=== PATIENT | male | born 1950 | race Caucasian/White ===

== ENCOUNTER 2017-08-01 10:39 | Emergency (ER) | payer BC ==
--- NOTE | 2017-08-01 10:53 | EDM.PDOC ---
ED HPI GENERAL MEDICAL PROBLEM - General Chief Complaint: Back Pain or Injury Stated Complaint: PAIN IN HIPS AND BACK Time Seen by Provider: 08/01/17 10:41 Source of Information: Reports: Patient History Limitations: Reports: No Limitations - History of Present Illness INITIAL COMMENTS - FREE TEXT/NARRATIVE: HISTORY AND PHYSICAL: History of present illness: Patient is a 66-year-old male who presents to the emergency room with complaints of low back pain, left hip pain and difficulty ambulating after falling. Patient reports he was climbing down off of a tractor when he fell backwards hitting his head and landing on the left hip. He denies any loss of consciousness, change in vision or nausea/vomiting. Reports that his had to come to the [place] and pick him up as he has pain and difficulty ambulating. He denies any numbness or tingling to his distal extremities. Denies any urinary or fecal incontinence. Takes a 81 mg aspirin daily. Review of systems: As per history of present illness and below otherwise all systems reviewed and negative. Past medical history: As per history of present illness and as reviewed below otherwise noncontributory. Surgical history: As per history of present illness and as reviewed below otherwise noncontributory. Social history: No reported history of drug or alcohol abuse. Family history: As per history of present illness and as reviewed below otherwise noncontributory. Physical exam: General: Well-developed and well-nourished 66-year-old male. Alert and oriented. Nontoxic appearing and in no acute distress. HEENT: Atraumatic, normocephalic, pupils equal and reactive bilaterally, negative for conjunctival pallor or scleral icterus, mucous membranes moist, throat clear, neck supple, nontender, trachea midline. No drooling or trismus noted. No meningeal signs Lungs: Clear to auscultation, breath sounds equal bilaterally, chest nontender. Heart: S1S2, regular rate and rhythm without overt murmur Abdomen: Soft, nondistended, nontender. Negative for masses or hepatosplenomegaly. Negative for costovertebral tenderness. Pelvis: Stable nontender. Genitourinary: Deferred. Rectal: Deferred. Skin: Intact, warm, dry. No lesions or rashes noted. Extremities: Moves all extremities per self without difficulty or deficits. Full ROM. No pain with palpation of the extremities. negative for cords or calf pain. Neurovascular unremarkable. Denies any numbness or tingling to the upper or lower extremities bilaterally. Strong pedal pulses. Strong radial pulses. C-spine/Back: No pinpoint vertebral tenderness upon palpation. No crepitus, step -offs or obvious deformities. Neuro: Awake, alert, oriented. Cranial nerves II through XII unremarkable. Cerebellum unremarkable. Motor and sensory unremarkable throughout. Exam nonfocal. Notes: Head CT is negative shoulder x-ray shows no abnormality, dislocation or fracture. There is noted an old healed left midclavicular fracture. Chest x-ray is negative. Lumbar spine/pelvis/left hip shows degenerative changes without any acute osseous findings. This information was shared with the patient. Diagnostics: CT head, chest x-ray, left shoulder, lumbar spine, left hip/pelvis Therapeutics: Toradol, Norflex, sling Impression: Low back pain Left hip injury Left Shoulder Injury Plan: 1. Rest, ice, elevate the affected extremities. After 24-48 hours, you may apply gentle heat to painful areas. 2. Tylenol as needed for pain. Please take the Flexeril (muscle relaxor) and diclofenac (anti-inflammatory) as prescribed. Do not take any additional NSAID, such as Aleve or Ibuprfoen, while taking the diclofenac. Flexeril (muscle relaxor) may cause some drowsiness so do not take it will driving her needing to be functioning outside of the house. 3. Follow-up with the orthopedic doctor in the next 1-2 days. Return to the ED as needed and as discussed. Definitive disposition and diagnosis as appropriate pending reevaluation and review of above. Onset: Today Duration: Hour(s): left hip Pain Score (Numeric/FACES): 9 - Related Data Allergies Allergy/AdvReac Type Severity Reaction Status Date / Time No Known Allergies Allergy Verified 08/01/17 10:43 Home Meds: Home Meds . [No Known Home Meds] 08/01/17 [History] Past Medical History HEENT History: Reports: Impaired Vision Cardiovascular History: Reports: Afib Respiratory History: Reports: None Gastrointestinal History: Reports: None Genitourinary History: Reports: Other (See Below) Other Genitourinary History: Leaking vein in kidney Musculoskeletal History: Reports: None Neurological History: Reports: None Psychiatric History: Reports: None Endocrine/Metabolic History: Reports: None Hematologic History: Reports: None Immunologic History: Reports: None Oncologic (Cancer) History: Reports: None Dermatologic History: Reports: None - Past Surgical History Head Surgeries/Procedures: Reports: None HEENT Surgical History: Reports: None Cardiovascular Surgical History: Reports: None Respiratory Surgical History: Reports: None GI Surgical History: Reports: None Male Surgical History: Reports: None Endocrine Surgical History: Reports: None Neurological Surgical History: Reports: None Musculoskeletal Surgical History: Reports: None Oncologic Surgical History: Reports: None Dermatological Surgical History: Reports: None Social & Family History - Family History Family Medical History: Noncontributory - Tobacco Use Smoking Status *Q: Never Smoker Second Hand Smoke Exposure: No - Caffeine Use Caffeine Use: Reports: None - Recreational Drug Use Recreational Drug Use: No ED ROS GENERAL - Review of Systems Review Of Systems: ROS reveals no pertinent complaints other than HPI. ED EXAM,LOWER BACK PAIN/INJURY - Physical Exam Exam: See Below (See dictation) Course - Vital Signs Last Recorded V/S: Last Vital Signs Temp 97.7 F 08/01/17 10:43 Pulse 73 08/01/17 10:43 Resp 18 08/01/17 10:43 BP 137/72 08/01/17 10:43 Pulse Ox 96 08/01/17 10:43 Departure - Departure Time of Disposition: 12:15 Disposition: Home, Self-Care 01 Clinical Impression: Shoulder injury Qualifiers: Encounter type: initial encounter Laterality: left Qualified Code(s): S49.92XA - Unspecified injury of left shoulder and upper arm, initial encounter Low back pain Qualifiers: Chronicity: acute Back pain laterality: left Sciatica presence: without sciatica Qualified Code(s): M54.5 - Low back pain Injury of left hip Qualifiers: Encounter type: initial encounter Qualified Code(s): S79.912A - Unspecified injury of left hip, initial encounter - Discharge Information Instructions: Back Pain, Adult, [id number] Referrals: Yefri Singh MD [Primary Care Provider] - Forms: ED Department Discharge Additional Instructions: The following information is given to patients seen in the emergency department who are being discharged to home. This information is to outline your options for follow-up care. We provide all patients seen in our emergency department with a follow-up referral. The need for follow-up, as well as the timing and circumstances, are variable depending upon the specifics of your emergency department visit. If you don't have a primary care physician on staff, we will provide you with a referral. We always advise you to contact your personal physician following an emergency department visit to inform them of the circumstance of the visit and for follow-up with them and/or the need for any referrals to a consulting specialist. The emergency department will also refer you to a specialist when appropriate. This referral assures that you have the opportunity for follow-up care with a specialist. All of these measure are taken in an effort to provide you with optimal care, which includes your follow-up. Under all circumstances we always encourage you to contact your private physician who remains a resource for coordinating your care. When calling for follow-up care, please make the office aware that this follow-up is from your recent emergency room visit. If for any reason you are refused follow-up, please contact the [facility] Emergency Department at and asked to speak to the emergency department charge nurse. [facility] [place] [address] [facility] Special[facility] - [facility] Professional Building [address] [place] [address], [address] [place] [address] 1. Rest, ice, elevate the affected extremities. After 24-48 hours, you may apply gentle heat to painful areas. 2. Tylenol as needed for pain. Please take the Flexeril (muscle relaxor) and diclofenac (anti-inflammatory) as prescribed. Do not take any additional NSAID, such as Aleve or Ibuprfoen, while taking the diclofenac. Flexeril (muscle relaxor) may cause some drowsiness so do not take it will driving her needing to be functioning outside of the house. 3. Follow-up with the orthopedic doctor in the next 1-2 days. Return to the ED as needed and as discussed.
--- NOTE | 2017-08-01 11:39 | CT ---
EXAMINATION: Non contrast CT head. Coronal and sagittal reformats. HISTORY: Fall FINDINGS: No evidence of intra or extra axial hemorrhage, mass, midline shift, hydrocephalus or edema. No hypoattenuation changes in the major vascular territories to suggest acute infarct. No abnormal intracranial calcifications are detected. No evidence of substantial vascular calcificat ions. Mild mucosal thickening within the maxillary sinuses. Glory bullosa within the right middle terminat e. Mastoid air cells are clear. Leftward deviation of the nasal septum with a spur. Pituitary fossa appears unremarkable. Calvarium is intact. No evidence of skull fracture. IMPRESSION: No acute intracranial findings.
--- NOTE | 2017-08-01 12:02 | CR ---
EXAMINATION: Two-view chest (PA and Lateral views). HISTORY: Shortness of breath. FINDINGS: The trachea is midline. The cardiomediastinal silhouette is within normal limits. No pulmonary infilt rates, effusions or pneumothorax. Mild interstitial prominence. Likely subacute right lateral rib fracture. Old left clavicle fracture noted. Thoracic kyphosis. IMPRESSION: No acute cardiopulmonary process.
--- NOTE | 2017-08-01 12:04 | CR ---
EXAMINATION: Left shoulder HISTORY: Pain COMPARISON: None TECHNIQUE: 3 views FINDINGS/IMPRESSION: There is no acute osseous abnormality, dislocation, or fracture. Old healed mid left clavicle fracture noted. Glenohumeral joint space is preserved.
--- NOTE | 2017-08-01 12:07 | CR ---
EXAMINATION: Lumbar spine, pelvis and left hip HISTORY: Fall COMPARISON: None TECHNIQUE: AP and lateral views of the lumbar spine, AP pelvis, and AP and lateral views of the left hip. FINDINGS: Mild levoscoliosis of the lumbar spine with underlying degenerative changes. Osteophyte formation is noted. No fracture or acute osseous abnormality. The SI joints are symmetric. Bone mineralization is normal. Coils project over the left abdomen. Iliopectineal lines are intact. Hip joint spaces are preserved. No fracture or acute osseous abnormal ity. Bone mineralization is normal. IMPRESSION: 1. Degenerative changes noted in the lumbar spine without acute osseous findings.
[2017-08-01] MEDS ORDERED: Ketorolac 60 MG/2 ML SDV IM ONE (12:17)
== END 2017-08-01 12:45 | disposition home or self-care (01) ==
LOC: MW.ED 10:39
DX: S49.92XA Unspecified injury of left shoulder and upper arm, initial encounter (principal); S79.912A Unspecified injury of left hip, initial encounter; W17.89XA Other fall from one level to another, initial encounter
CPT/HCPCS: 70450; 71046; 72100; 73030; 73502; 96372; 99284; J1885; J2360